=== PATIENT | female | born 1990 | race Caucasian/White ===

== ENCOUNTER 2023-03-20 05:46 | Inpatient (IN) ==
--- NOTE | 2023-03-12 09:26 | Anesthesiology Consultation ---
Date of Service March 12, 2023 Assessment & Plan (1) Encounter for pre-operative examination: Plan - Per software engineering project manager on 03/11/2023: No known infectious disease contacts, current infectious disease symptoms in past 10 days or COVID positive test result in the past 90 days. 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 History Surgery Operation Date: 03/20/23 09:00 Proposed Procedures p Section (Delivery of Baby Through Abdominal Incision) - Christie Meredith MD Height/Weight Height: 5 ft 7 in Weight: 120.202 kg Allergies Allergy/AdvReac Type Severity Reaction Status Date / Time No Known Allergies Allergy Verified 03/11/23 16:12 Medications Home Medications Medication Instructions Recorded Confirmed Last Taken prenat.vits,vanessa,dgq-[id number]-[id number] 1 tab PO QAM 08/28/22 03/11/23 03/09/23 08:00 aspirin 81 mg tablet 81 mg PO QAM 03/09/23 03/11/23 03/09/23 07:30 levothyroxine 200 mcg tablet 200 mcg PO QAM 03/11/23 03/11/23 Unknown levothyroxine 75 mcg tablet 75 mcg PO QAM 03/11/23 03/11/23 Unknown Past Medical History Medical History (Updated 03/12/23 @ 09:25 by Deneen Heller PA-C) Dichorionic diamniotic twin Abbe's disease History of kidney stones 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 Hypothyroidism Past Family History Family History (Updated 03/11/23 @ 16:18 by Dorie Gamez RN) Aunt Hypothyroidism Grandfather Parkinson disease Father Family history of reaction to anesthesia hx of sleep apnea; had difficulty waking and had to receive narcan Mother Family history of reaction to anesthesia nausea Other Hypertension Past Surgical History Surgical History (Updated 03/11/23 @ 16:13 by Dorie Gamez RN) H/O wisdom tooth extraction History of placement of ear tubes History of tonsillectomy and adenoidectomy Hx of total thyroidectomy Social History Smoking Status: Never smoker Do You Dip or Chew Tobacco: No Hx Alcohol Use: No Hx Substance Use: No substance use type: does not use
--- NOTE | 2023-03-19 12:44 | History & Physical Report ---
Date of Service March 19, 2023 Assessment & Plan (1) 38 weeks gestation of : (2) Dichorionic diamniotic twin : Plan -Discussed indications, risks, benefits, alternatives with risks including infection, bleeding, injury to adjacent structures (bowel, bladder, ureters, blood vessels, nerves, baby), possible need for blood transfusion and/or life saving hysterectomy, VTE. Consent reviewed in detail w/ pt and signed after all questions answered to her satisfaction. For ancef 3g in AM, reviewed post-op recovery expectations History of Present Illness Chief Complaint: preop Primary Care Provider: Dakotah Corbin MD 32 yo presents for preop to planned primary CS at 38 wks for di/di TIUP. 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 2021 sab G2 current denies hx STIs Allergies Allergy/AdvReac Type Severity Reaction Status Date / Time No Known Allergies Allergy Verified 03/19/23 09:13 Home Medications Medication Instructions Recorded Confirmed Type prenat.vits,vanessa,[id number] 1 tab PO QAM 08/28/22 03/19/23 History aspirin 81 mg tablet 81 mg PO QAM 03/09/23 03/19/23 History levothyroxine 200 mcg tablet 200 mcg PO QAM 03/11/23 03/19/23 History levothyroxine 75 mcg tablet 75 mcg PO QAM 03/11/23 03/19/23 History Patient History Medical History (Updated 03/18/23 @ 10:27 by Leeann Diaz MD, FACOG) Dichorionic diamniotic twin Abbe's disease History of kidney stones 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 Hypothyroidism Surgical History H/O wisdom tooth extraction History of placement of ear tubes History of tonsillectomy and adenoidectomy Hx of total thyroidectomy Family History Aunt Hypothyroidism Grandfather Parkinson disease Father Family history of reaction to anesthesia hx of sleep apnea; had difficulty waking and had to receive narcan Mother Family history of reaction to anesthesia nausea Other Hypertension Social History Smoking Status: Never smoker Second Hand Exposure: No; Do You Dip or Chew Tobacco: No; Hx Alcohol Use: No Hx Substance Use: No Preferred Language: Egyptian Communication Ability: Effective Visual Impairment: No Limitations Hearing Ability: Normal Travel Pt Required: No Beliefs That Will Affect Care: None marital status: marital status details: Luis (32) [phone] Current Living Situation: Spouse Current Living Situation Comment: lives with current occupational status: employed 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 [employer] Feels Safe at Home: Yes Diet: regular Gender Identity: Female Assistive Devices: None Physical Exam Respiratory: normal respiratory effort, lungs clear to auscultation Cardiovascular: RRR, no murmur, no edema Genitourinary: US V/B, +FHT x 2 Results & Data Laboratory Results OB Labs: Blood Type O Positive 09/23/22 Antibody Screen NEGATIVE 09/23/22 Hemoglobin 12.3 g/dl (12.0-16.0) 01/13/23 Hematocrit 34.2 % (37.0-47.0) L 01/13/23 Mean Corpuscular Volume 92.4 fL (80.0-100.0) 09/15/22 Platelet Count 258 Thousand/uL (140-400) 09/15/22 Rubella IgG Antibody 1.04 Index 09/15/22 Rapid Plasma Reagin Nonreactive (Nonreactive) 01/13/23 Hepatitis B Surface Antigen. NON-REACTIVE (NON-REACTIVE) 09/15/22 Hepatitis C Antibody (EIA) NON-REACTIVE (NON-REACTIVE) 09/15/22 HIV (1&2) Ag and Ab Confirmation NON-REACTIVE (NON-REACTIVE) 09/15/22 Glucose 1 Hour 50 gm Load 136 mg/dl (70-130) H 01/13/23 Maternal Serum Alpha Fetoprotein 43.4 ng/mL 10/21/22 OB Optional Labs: Chlamydia trachomatis RNA Not Detected (NotDetected) 09/02/22 Neisseria gonorrhoeae RNA Not Detected (NotDetected) 09/02/22 Thyroid Stimulating Hormone (TSH) 0.525 uIu/ml (0.300-4.500) 02/18/23 Alpha Fetoprotein Triple Screen SEE NOTE 10/21/22 low risk cfdna x 2 neg carrier screen gbs neg Diagnostic Findings A - post plac B - ant plac Coding Level of Care Code None Diagnoses 38 weeks gestation of Z3A.38 Dichorionic diamniotic twin O30.049
[2023-03-20] MEDS ORDERED: ceFAZolin 3,000 MG in DEXTROSE 5% 50 ML IV SCH (06:00)
[2023-03-20] MEDS ORDERED: SODIUM CHLORIDE 0.9% 250 ML IV PRN (06:00)
[2023-03-20] MEDS ORDERED: CITRIC ACID/SODIUM CITRATE 15 ML UDC PO SCH (06:00)
[2023-03-20] MEDS ORDERED: LACTATED RINGER'S 1,000 ML IV SCH ×2 (06:00→11:07)
[2023-03-20] MEDS ORDERED: fentaNYL citrate PF 100 MCG/2 ML VIAL ONE (06:57)
[2023-03-20] MEDS ORDERED: KETOROLAC 30 MG/ML VIAL ONE (06:57)
[2023-03-20] MEDS ORDERED: OXYTOCIN 10 UNITS/ML VIAL ONE (06:57)
[2023-03-20] MEDS ORDERED: ONDANSETRON INJ 2 MG/ML 2 ML VIAL ONE (06:57)
[2023-03-20] MEDS ORDERED: PHENYLEPHRINE HCL 10 MG/ML VIAL ONE (06:57)
[2023-03-20] MEDS ORDERED: MoRPHine SULFATE PF 1 MG/ML 10 ML AMP/VIAL ONE (06:58)
--- NOTE | 2023-03-20 07:33 | History & Physical Bridge Note ---
Date of Service March 20, 2023 History & Physical Bridge Note I have examined the patient, reviewed the History & Physical and in the interval since the performance of the History & Physical I have noted the following changes of clinical significance: no changes noted
[2023-03-20 07:49] LABS: Basophils # (auto) 0.03 K/uL (0-0.2); Basophils % (auto) 0.4 %; Eosinophils # (auto) 0.09 K/uL (0-0.50); Eosinophils % (auto) 1.2 %; Hematocrit (blood only) 34.5 % (37.0-47.0); Hemoglobin 12.3 g/dl (12.0-16.0); Immature Granulocytes # (auto) 0.12 K/uL (0.01-0.20); Immature Granulocytes % (auto) 1.6 %; Lymphocytes # (auto) 2.24 K/uL (1.2-3.4); Lymphocytes % (auto) 30.5 %; Mean Corpuscular Hemoglobin 32.5 pg (25.0-34.0); Mean Corpuscular Hgb Conc 35.7 g/dL (32.0-36.0); Mean Platelet Volume 11.6 fL (9.4-12.4); Monocytes # (auto) 0.57 K/uL (0.11-0.59); Monocytes % (auto) 7.8 %; Neutrophils % (auto) 58.5 %; Platelet Count 143 K/uL (130-400); RDW Coefficient of Variation 12.5 % (11.5-14.5); RDW Standard Deviation 41.3 fL (36.4-46.3); Red Blood Count 3.79 M/uL (4.20-5.40); White Blood Count 7.35 K/ul (4.8-10.8)
[2023-03-20] MEDS ORDERED: KETOROLAC 30 MG/ML VIAL IV PRN (08:12)
[2023-03-20] MEDS ORDERED: NALOXONE HCL 0.4 MG/1 ML VIAL/CARP IV PRN (08:12)
[2023-03-20] MEDS ORDERED: NALOXONE HCL 1 MG in SODIUM CHLORIDE 0.9% 1000ML 1,000 ML IV PRN (08:12)
[2023-03-20] MEDS ORDERED: ONDANSETRON INJ 2 MG/ML 2 ML VIAL IV PRN (08:12)
[2023-03-20] MEDS ORDERED: HYDROmorphone INJ 0.5 MG/0.5 ML SYR IV PRN (08:12)
[2023-03-20] MEDS ORDERED: diphenhydrAMINE 50 MG/ML VIAL IV PRN (08:12)
[2023-03-20] MEDS ORDERED: NALBUPHINE HCL INJ 10 MG/ML AMP IV PRN (08:12)
[2023-03-20] MEDS ORDERED: PROMETHAZINE HCL 12.5 MG in SODIUM CHLORIDE 0.9% 50 ML IV PRN (08:12)
[2023-03-20] MEDS ORDERED: MoRPHine SULFATE PF 1 MG/ML 10 ML AMP/VIAL INT SPINAL ONE (08:12)
[2023-03-20] MEDS ORDERED: ePHEDrine sulfate 50 MG/ML AMP IV PRN (08:12)
[2023-03-20] MEDS ORDERED: NALOXONE HCL 0.08 MG in SYRINGE 1.8 ML IV PRN (08:12)
[2023-03-20] MEDS ORDERED: ACETAMINOPHEN 1,000 MG/100 ML VIAL IV PRN (08:12)
[2023-03-20] MEDS ORDERED: LACTATED RINGER'S 500 ML IV PRN (08:12)
[2023-03-20] MEDS ORDERED: SODIUM CHLORIDE 0.9% 1000ML 1,000 ML IV SCH (08:15)
[2023-03-20] MEDS ORDERED: NO NARCOTICS OR SEDATIVES SCH (08:15)
[2023-03-20] MEDS ORDERED: DC INTRASPINAL MORPHINE SCH (08:15)
--- NOTE | 2023-03-20 09:12 | Operative Report ---
PG Post Operative Report Pre & Post Diagnosis Operation Date: 03/20/23 07:30 Pre-Op Diagnosis: 1. Dichorionic Diamniotic Twin IUP at 38 Weeks Gestation Post-Op Diagnosis: Same I identified the patient and participated in the time-out.: Yes Procedure Operation Date: 03/20/23 07:30 Actual Procedures p Section in LD; Primary Lower Uterine Transverse Section for the of live girl infant (Baby A) at 0819 and live boy (Baby B) at 0822(Bilateral) - Christie Meredith MD Surgeon Christie Meredith MD Supervising Fire Marshal MD Waqas Estimated Blood Loss 700 Findings Consistent with Post-Op Diagnosis Normal appearing uterus, bilateral fallopian tubes and ovaries. Baby A viable female infant with APGARs of 8 and 9 at 1 and 5 minutes, respectively. Baby B viable male infant with APGARs of 8 and 9 at 1 and 5 minutes, respectively Fluids 900cc crystalloid, UOP 100cc by wells catheter Specimens Cord blood, placenta Drains Wells draining clear urine Anesthesia Type Spinal Complications none Disposition Accompanied Patient To Recovery: Yes Disposition: L&D Indications 32 yo at 38 wks gestation with dichorionic diamniotic twin presented for planned primary CS. On arrival, twins were confirmed to be cephalic/transverse. Description of Procedure The patient was taken to the operating room after consents were ensured. The patient was properly identified. Spinal anesthesia was obtained without difficulty. The patient was placed in a dorsal supine position with left lateral tilt, then prepped and draped in normal sterile fashion. Surgical time out was performed. Antibiotics were given for prophylaxis. Anesthesia was tested to ensure adequate surgical levels. Pfannenstiel skin incision was performed and carried down to the underlying fascia with a knife. The fascia was then nicked in the midline and extended laterally with darshan and [place]cia scissors. Superior portion of the fascia was grasped with Kochers x2 and elevated off the underlying rectus muscles using blunt dissection. Inferior portion of the fascia was then grasped with Lilian clamps x2 and also elevated off the underlying muscles with blunt dissection. Midline was identified. The peritoneum was then entered and extended to provide adequate room for delivery of baby. A hand was inserted into the abdomen, uterus was noted to be clear of adhesions. Bladder blade was inserted, bladder flap was created in the usual fashion. A low transverse uterine incision was made in the uterus and extended bluntly in a superior to inferior fashion. Amniotomy was made with clear fluid at the time of rupture. head was grasped and elevated through the hysterotomy in an atraumatic fashion. The baby delivered in AGUS position, no nuchal cord. Remainder of the body delivered without incident. Nose and mouth were bulb suctioned on the surgical field. The cord was double clamped and cut, baby was handed off to awaiting pediatrics staff. Cord blood was obtained and cord was marked with single umbilical clamp. Attention was turned to baby B who was in transverse position. Fundal pressure was applied to bring sac to the hysterotomy, sac was then ruptured for clear fluid. feet were grasped and delivered through the hysterotomy. Fundal pressure was applied and remainder of fetus was delivered atraumatically to the level of the scapula. Moist blue towel was wrapped around the torso and arms were swept across the chest atraumatically. head was then delivered atraumatically with MSV maneuver. Cord was double clamped and cut, baby handed off to awaiting pediatrics staff. Cord blood was obtained and cord was marked with two umbilical clamps. Placentas were then expressed from the uterus. The uterus was exteriorized. Several passes were made inside the uterus to remove the remaining membranes. Attention was then turned to the hysterotomy, which was then closed with a running locked suture of 0 Vicryl on a CTX needle. An imbricating layer was then performed using 0-Monocryl. There was noted to be good hemostasis. The posterior cul-de-sac was then inspected and cleaned of clot and debris. The hysterotomy was again inspected and noted to be hemostatic. The uterus was returned to the abdomen. The right and left pericolic gutters were cleaned of all clot and debris. The hysterotomy was again noted to be hemostatic. Space of Retzius was noted to be hemostatic. The fascia was then closed with a running suture of 0 Vicryl on a CT1 needle. Subcutaneous tissue was copiously irrigated and noted to be hemostatic. Subcutaneous tissue was re-approximated using 2-0 plain gut. The skin was then closed with a running suture of 3-0 Monocryl in a subcuticular fashion. At termination of the procedure, fundal pressure was applied and a moderate amount of lochia was expressed. Pressure dressing was applied to the patient. She tolerated the procedure well. All sponge, needle, instrument counts were correct x 2. I attest to the content of the Intraoperative Record and any orders documented therein. Any exceptions are noted below. OB Procedure Charges 48728
--- NOTE | 2023-03-20 09:47 | Anesthesiology Progress Note ---
Date of Service March 20, 2023 Anesthesia Post Procedure Vital Signs Vital Signs: Temp Pulse Resp BP Pulse Ox 03/20/23 09:35 97.9 F 18 03/20/23 09:25 18 03/20/23 09:15 97.7 F 16 03/20/23 09:05 97.7 F 86 18 92 03/20/23 09:46 111 H 128/73 03/20/23 09:44 124 H 96 03/20/23 09:39 97 H 96 03/20/23 09:38 89 94 03/20/23 09:36 84 119/67 03/20/23 09:34 87 94 03/20/23 09:33 96 H 94 03/20/23 09:29 90 97 03/20/23 09:26 83 121/59 L 03/20/23 09:24 90 96 03/20/23 09:23 86 92 03/20/23 09:19 84 97 03/20/23 09:16 77 121/70 03/20/23 09:14 83 96 03/20/23 09:12 77 94 03/20/23 09:09 84 97 03/20/23 09:04 78 100 03/20/23 09:05 75 122/60 03/20/23 06:28 98 H 135/86 03/20/23 06:18 99.0 F Pain Intensity Abdomen: Pain Intensity: 0 Transfer of Care Handoff Completed per policy Notes Mental Status: alert / awake / arousable and participated in evaluation Patient Amnestic to Procedure: No Nausea / Vomiting: adequately controlled Pain: adequately controlled Airway Patency, RR, SpO2: stable & adequate BP & HR: stable & adequate Hydration State: stable & adequate Neuraxial Anesthesia: was administered and sensory block is resolving Anesthetic Complications: no major complications apparent and Pt Satisfied with anesthetic care
[2023-03-20] MEDS ORDERED: BENZOCAINE 20% SPRY 85 APPLN/85 GM CAN EXT PRN (11:07)
[2023-03-20] MEDS ORDERED: HYDROCORTISONE ACETATE 25 MG SUPP PR PRN (11:07)
[2023-03-20] MEDS ORDERED: DIPHTHERIA/TETANUS/PERTUSSIS Vaccine (Tdap, Age 7+yrs) 0.5mL SYR/VL IM ONE (11:07)
[2023-03-20] MEDS: OXYTOCIN 20 UNITS in LACTATED RINGER'S 1,000 ML IV SCH ×2 (11:24→19:32)
[2023-03-20] MEDS: SIMETHICONE 80 MG CHEW PO SCH ×3 (15:17→20:57)
[2023-03-20] MEDS: DOCUSATE SODIUM 100 MG CAP PO SCH (20:57)
--- NOTE | 2023-03-20 21:34 | Obstetrical Progress Note ---
Date of Service <Arnie Savage MD - Last Filed: 03/21/23 09:18> March 20, 2023 Assessment & Plan <Arnie Savage MD - Last Filed: 03/21/23 09:18> (1) care following delivery: Plan Vital Signs reviewed and WNL. (Tmax at 37.2) Hemoglobin Reviewed. 12.3 () 11.0 (today). Blood Type: O+, GBS-, Rubella Immune. Pt is doing well clinically. Encourage Ambulation, Monitor and Control pain with Motrin PRN, Resume regular diet, Monitor Lochia Encourage Breast Feeding. Pt will be staying at least one if not two more nights. <Joey Antoine MD - Last Filed: 03/23/23 08:25> (1) care following delivery: Subjective <Arnie Savage MD - Last Filed: 03/21/23 09:18> Ambulation: ambulating normally (a little pain but manageable) Voiding: no voiding problems (Ryan removed at 3 am, hasn't urinated on own since) and no incontinence Passing Gas:: No (has had little to eat since C/S) Diet Tolerance:: regular diet Lochia:: Small Feeding Type:: breast feeding Current Pain Level(1-10): 7 (when bending stomach or walking around) 32 yo F, , s/p C/S is feeling some residual pain around incision area Eyes: no diplopia, no seeing flashes or no worsening vision Ear, Nose, Mouth, Throat: no ear pain or no sore throat Respiratory: no cough or no dyspnea Cardiovascular: no chest pain or no palpitations Gastrointestinal: + abdominal pain (around incision); no nausea (some N/V after C/S due to anesthesia) or no vomiting Musculoskeletal: no joint pain, no myalgia or no body aches Physical Exam <Arnie Savage MD - Last Filed: 03/21/23 09:18> Respiratory normal respiratory effort, lungs clear to auscultation Cardiovascular RRR, no murmur, no edema Musculoskeletal no cyanosis or clubbing, extremities motor strength 5/5 Extremities: extremities normal to inspection (no calf pain) Results & Data <Arnie Savage MD - Last Filed: 03/21/23 09:18> Vital Signs (Past 12 Hours) Vital Signs Temp Pulse Pulse Resp BP BP BP 03/20/23 20:00 18 03/20/23 20:00 36.8 C 71 18 124/82 03/20/23 19:00 18 03/20/23 18:00 18 03/20/23 15:00 18 03/20/23 16:00 18 03/20/23 15:25 36.8 C 77 18 136/79 03/20/23 17:04 18 03/20/23 14:30 20 03/20/23 13:30 20 03/20/23 12:30 16 03/20/23 11:35 16 03/20/23 11:35 36.7 C 76 16 124/74 03/20/23 11:35 03/20/23 11:44 36.7 C 18 03/20/23 10:35 36.6 C 71 18 03/20/23 10:05 36.6 C 72 16 123/73 03/20/23 10:05 36.6 C 85 16 03/20/23 09:55 37 C 18 03/20/23 09:35 36.6 C 18 03/20/23 09:45 36.6 C 18 03/20/23 11:24 79 03/20/23 11:23 68 03/20/23 11:19 72 03/20/23 11:14 70 03/20/23 11:09 83 03/20/23 11:06 110 H 138/74 03/20/23 11:04 100 H 03/20/23 10:59 65 03/20/23 10:54 84 03/20/23 10:49 85 03/20/23 10:44 73 03/20/23 10:39 71 03/20/23 10:36 100 H 124/74 03/20/23 10:34 117 H 03/20/23 10:29 67 03/20/23 10:26 72 123/73 03/20/23 10:24 85 03/20/23 10:19 75 03/20/23 10:16 78 122/72 03/20/23 10:14 86 03/20/23 10:09 104 H 03/20/23 10:06 78 120/72 03/20/23 10:04 80 03/20/23 10:01 100 H 03/20/23 09:59 81 03/20/23 09:56 82 121/73 03/20/23 09:54 83 03/20/23 09:49 91 H 03/20/23 09:46 111 H 128/73 03/20/23 09:44 124 H 03/20/23 09:39 97 H 03/20/23 09:38 89 03/20/23 09:36 84 119/67 Pulse Ox Pulse Ox O2 Del Method O2 Del Method 03/20/23 20:00 98 03/20/23 20:00 98 Room Air 03/20/23 19:00 98 03/20/23 18:00 96 03/20/23 15:00 97 03/20/23 16:00 98 03/20/23 15:25 Room Air 03/20/23 17:04 96 03/20/23 14:30 97 03/20/23 13:30 98 03/20/23 12:30 100 03/20/23 11:35 100 03/20/23 11:35 100 Room Air 03/20/23 11:35 100 Room Air 03/20/23 11:44 03/20/23 10:35 98 03/20/23 10:05 03/20/23 10:05 97 03/20/23 09:55 03/20/23 09:35 03/20/23 09:45 03/20/23 11:24 97 03/20/23 11:23 94 03/20/23 11:19 97 03/20/23 11:14 98 03/20/23 11:09 96 03/20/23 11:06 03/20/23 11:04 98 03/20/23 10:59 96 03/20/23 10:54 96 03/20/23 10:49 96 03/20/23 10:44 95 03/20/23 10:39 98 03/20/23 10:36 03/20/23 10:34 97 03/20/23 10:29 96 03/20/23 10:26 03/20/23 10:24 97 03/20/23 10:19 97 03/20/23 10:16 03/20/23 10:14 98 03/20/23 10:09 96 03/20/23 10:06 03/20/23 10:04 96 03/20/23 10:01 91 03/20/23 09:59 97 03/20/23 09:56 03/20/23 09:54 96 03/20/23 09:49 96 03/20/23 09:46 03/20/23 09:44 96 03/20/23 09:39 96 03/20/23 09:38 94 03/20/23 09:36 <Joey Antoine MD - Last Filed: 03/23/23 08:25> Co-Signing Physician Notes Patient seen with resident and agree with the above findings and plan. Routine care.
[2023-03-21] MEDS ORDERED: ONDANSETRON INJ 2 MG/ML 2 ML VIAL IV PRN (02:12)
[2023-03-21] MEDS ORDERED: KETOROLAC 30 MG/ML VIAL IV PRN (02:12)
[2023-03-21] MEDS ORDERED: diphenhydrAMINE 50 MG/ML VIAL IV PRN (02:12)
[2023-03-21] MEDS ORDERED: PROMETHAZINE HCL 25 MG in SODIUM CHLORIDE 0.9% 50 ML IV PRN (02:12)
[2023-03-21] MEDS ORDERED: MAGNESIUM HYDROXIDE SUSP 30 ML UDC PO PRN (02:12)
[2023-03-21] MEDS ORDERED: SENNA 8.6 MG TAB PO PRN (02:12)
[2023-03-21] MEDS ORDERED: diphenhydrAMINE Capsule 25 MG CAP PO PRN (02:12)
[2023-03-21] MEDS: oxyCODONE/ACETAMINOPHEN 5mg/325mg TAB PO PRN ×4 (03:45→20:19)
[2023-03-21] MEDS: IBUPROFEN 600 MG TAB PO PRN ×4 (03:46→20:18)
[2023-03-21 06:25] LABS: Basophils # (auto) 0.04 K/uL (0-0.2); Basophils % (auto) 0.4 %; Eosinophils # (auto) 0.06 K/uL (0-0.50); Eosinophils % (auto) 0.7 %; Hematocrit (blood only) 31.2 % (37.0-47.0); Immature Granulocytes # (auto) 0.06 K/uL (0.01-0.20); Immature Granulocytes % (auto) 0.7 %; Lymphocytes # (auto) 1.54 K/uL (1.2-3.4); Lymphocytes % (auto) 16.8 %; Mean Corpuscular Hemoglobin 32.6 pg (25.0-34.0); Mean Corpuscular Hgb Conc 35.3 g/dL (32.0-36.0); Mean Corpuscular Volume 92.6 fL (80.0-100.0); Mean Platelet Volume 11.1 fL (9.4-12.4); Monocytes # (auto) 0.69 K/uL (0.11-0.59); Monocytes % (auto) 7.5 %; Neutrophils # (auto) 6.75 K/uL (1.40-6.50); Neutrophils % (auto) 73.9 %; Platelet Count 153 K/uL (130-400); RDW Coefficient of Variation 12.6 % (11.5-14.5); Red Blood Count 3.37 M/uL (4.20-5.40); White Blood Count 9.14 K/ul (4.8-10.8)
[2023-03-21] MEDS: LEVOTHYROXINE SODIUM 75 MCG TABLET PO SCH (08:14)
[2023-03-21] MEDS: LEVOTHYROXINE SODIUM 200 MCG TABLET PO SCH (08:14)
[2023-03-21] MEDS: PRENATAL VITAMIN 1 TAB PO SCH (09:11)
[2023-03-21] MEDS: FERROUS SULFATE 325 MG TAB PO SCH (09:11)
[2023-03-21] MEDS: DOCUSATE SODIUM 100 MG CAP PO SCH ×2 (09:11→20:19)
[2023-03-21] MEDS: SIMETHICONE 80 MG CHEW PO SCH ×4 (09:12→20:19)
[2023-03-21] MEDS ORDERED: bisacodyL 5 MG TABEC PO SCH (20:00)
[2023-03-22] MEDS: oxyCODONE/ACETAMINOPHEN 5mg/325mg TAB PO PRN ×4 (00:14→14:45)
[2023-03-22] MEDS: IBUPROFEN 600 MG TAB PO PRN ×4 (00:14→14:46)
[2023-03-22 06:54] LABS: Hematocrit (blood only) 30.6 % (37.0-47.0); Hemoglobin 10.8 g/dl (12.0-16.0)
--- NOTE | 2023-03-22 07:40 | Obstetrical Progress Note ---
Date of Service March 22, 2023 Assessment & Plan (1) care following delivery: 32 yo POD 2 from [facility] for di/di TIUP, doing well -Meeting all pp milestones -O+/rubella immune/ -f/u 6 weeks for appt, desires d/c home today, ok to do so Subjective Ambulation: ambulating normally Voiding: no voiding problems Passing Gas:: Yes Diet Tolerance:: regular diet Lochia:: Small Feeding Type:: breast feeding Pain well managed with medication Review of Systems Denies fevers, chills, n/v, TIDWELL, CP, SOB Physical Exam Constitutional WD/WN, vitals as above no acute distress Respiratory normal respiratory effort, lungs clear to auscultation Cardiovascular RRR, no murmur, no edema Gastrointestinal (Abdomen) Percussion/Palpation: abdomen soft; abdomen nontender fundus firm at umbilicus and NT, incision c/d/i Musculoskeletal BLE symmetric, nonerythematous, nontender Results & Data Vital Signs (Past 12 Hours) Vital Signs Temp Pulse Resp BP Pulse Ox O2 Del Method 03/22/23 00:10 97.7 F 79 17 124/84 98 Room Air 03/21/23 20:20 Room Air 03/21/23 20:20 97.5 F L 85 16 133/87 98 Room Air
[2023-03-22] MEDS: LEVOTHYROXINE SODIUM 75 MCG TABLET PO SCH (07:43)
[2023-03-22] MEDS: LEVOTHYROXINE SODIUM 200 MCG TABLET PO SCH (07:43)
[2023-03-22] MEDS: SIMETHICONE 80 MG CHEW PO SCH ×2 (08:54→14:46)
[2023-03-22] MEDS: DOCUSATE SODIUM 100 MG CAP PO SCH (08:54)
[2023-03-22] MEDS: PRENATAL VITAMIN 1 TAB PO SCH (08:55)
[2023-03-22] MEDS: FERROUS SULFATE 325 MG TAB PO SCH (08:55)
[2023-03-22] MEDS ORDERED: bisacodyL 10 MG SUPP PR PRN (09:06)
--- NOTE | 2023-03-24 07:53 | Discharge Summary ---
Date of Service March 24, 2023 Admission HPI Per Admitting Provider 32 yo presents for preop to planned primary CS at 38 wks for di/di TIUP. 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 current denies hx STIs Admission Exam (Per Admitting) Constitutional WD/WN, vitals as above no acute distress Respiratory normal respiratory effort, lungs clear to auscultation Cardiovascular RRR, no murmur, no edema Gastrointestinal (Abdomen) Percussion/Palpation: abdomen soft; abdomen nontender Discharge Data Consultations 03/20/23 05:56 Consult Anesthesiology Stat Procedures Performed Operation Date: 03/20/23 07:30 Actual Procedures p Section in LD; Primary Lower Uterine Transverse Section for the of live girl infant (Baby A) at 0819 and live boy (Baby B) at 0822(Bilateral) - Christie Meredith MD Hospital Course (1) care following delivery: (2) Dichorionic diamniotic twin : Plan 32 yo at 38 wks gestation with dichorionic diamniotic twin presen marci for planned primary CS. On arrival, twins were confirmed to be cephalic/transverse.See operative report for details. Postop course was uncomplicated and she was discharged home on POD2 Coding Level of Care Code None Diagnoses care following delivery Z39.2 Dichorionic diamniotic twin O30.049
== END 2023-03-22 17:14 | disposition home or self-care (01) | DRG 788 ==
LOC: 4S1 05:46 → EDSTATUS 09:00 → 4E2 11:35
DX: O30.043 Twin pregnancy, dichorionic/diamniotic, third trimester; O99.284 Endocrine, nutritional and metabolic diseases complicating childbirth; Z37.2 Twins, both liveborn; E03.9 Hypothyroidism, unspecified; Z3A.38 38 weeks gestation of pregnancy